=== PATIENT | female | born 1980 | race Caucasian/White ===

== ENCOUNTER 2017-10-03 11:26 | Emergency (ER) | payer BC ==
--- NOTE | 2017-10-03 11:40 | EDM.PDOC ---
ED HPI GENERAL MEDICAL PROBLEM - General Chief Complaint: Abdominal Pain Stated Complaint: abdominal pain Time Seen by Provider: 10/03/17 11:27 Source of Information: Reports: Patient History Limitations: Reports: No Limitations - History of Present Illness INITIAL COMMENTS - FREE TEXT/NARRATIVE: HISTORY AND PHYSICAL: History of present illness: Patient is a 37-year-old female who presents to the emergency room today with complaints of upper abdominal pain 3 days. She states the pain is worse shortly after eating and is associated with some nausea. States she does feel slightly feverish/chills but does not have a recorded temperature from home. She denies any chest pain, shortness of breath, vomiting, diarrhea/ constipation. She denies any dysuria or chance of . Has no previous GI health history or surgeries. Review of systems: As per history of present illness and below otherwise all systems reviewed and negative. Past medical history: As per history of present illness and as reviewed below otherwise noncontributory. Surgical history: As per history of present illness and as reviewed below otherwise noncontributory. Social history: No reported history of drug or alcohol abuse. Family history: As per history of present illness and as reviewed below otherwise noncontributory. Physical exam: General: Well-developed and well-nourished 37-year-old female. Alert and oriented. Nontoxic appearing and in no acute distress. HEENT: Atraumatic, normocephalic, pupils reactive, negative for conjunctival pallor or scleral icterus, mucous membranes moist, throat clear, neck supple, nontender, trachea midline. Lungs: Clear to auscultation, breath sounds equal bilaterally, chest nontender. Heart: S1S2, regular rate and rhythm Abdomen: Soft, nondistended, mild tenderness to the epigastric area. Negative for masses or hepatosplenomegaly. Negative for costovertebral tenderness. Pelvis: Stable nontender. Genitourinary: Deferred. Rectal: Deferred. Extremities: Atraumatic, negative for cords or calf pain. Neurovascular unremarkable. Neuro: Awake, alert, oriented. Cranial nerves II through XII unremarkable. Cerebellum unremarkable. Motor and sensory unremarkable throughout. Exam nonfocal. At this time the patient declines anything for pain. Will perform labs and a gallbladder ultrasound. Gallbladder and common bile duct normal. However a positive sonographic Castro` s sign was noted. Suggesting a HIDA scan. I did share this information with the patient. Lab work is within normal limits except she does have a urinary tract infection which I will treat with Macrobid. Prescription for Zofran and tramadol for her epigastric pain. Encouraged her to follow up with the general surgeon. She voices understanding and is agreeable to plan of care. Diagnostics: CBC, CMP, amylase, lipase, UA, urine , limited abdominal ultrasound, monospot, [employer]: GI cocktail Impression: UTI Epigastric pain Plan: 1. Please take the antibiotic for UTI. Zofran has been prescribed for nausea. Tramadol for pain management. You may use Tylenol and/or Ibuprofen for pain. 2. The U/S did not show any gallstones or gallbladder wall thickening, but due to the + Castro's sign - recommended follow up with general surgeon for possible HIDA scan. A referral has been made for you. 3. [place] diet. Increase your oral fluids. Protonix or Omeprozole (any over the counter PPI) once daily until follow up with general surgery. 4. Return to the ED as needed and as discussed. Definitive disposition and diagnosis as appropriate pending reevaluation and review of above. Duration: Day(s): Location: Reports: Neck, Abdomen upper abdomen Pain Score (Numeric/FACES): 4 - Related Data Allergies Allergy/AdvReac Type Severity Reaction Status Date / Time No Known Allergies Allergy Verified 10/03/17 11:35 Home Meds: Home Meds Drospir/Eth Estra/Levomefol Ca [Beyaz 28] 1 tab PO DAILY 11/13/14 [History] Social & Family History - Tobacco Use Smoking Status *Q: Never Smoker - Alcohol Use Days Per Week of Alcohol Use: 0 - Recreational Drug Use Recreational Drug Use: No ED ROS GENERAL - Review of Systems Review Of Systems: ROS reveals no pertinent complaints other than HPI. ED EXAM, GI/ABD - Physical Exam Exam: See Below (See dictation) Course - Vital Signs Last Recorded V/S: Last Vital Signs Temp 97.6 F 10/03/17 11:32 Pulse 68 10/03/17 13:21 Resp 18 10/03/17 13:21 BP 113/63 10/03/17 13:21 Pulse Ox 98 10/03/17 13:21 - Orders/Labs/Meds Orders: Active Orders 24 hr Category Date Time Status Abdomen Ltd [US] Stat Exams 10/03/17 11:36 Taken CULTURE URINE [RM] Stat Lab 10/03/17 11:50 Received Labs: Laboratory Tests 10/03/17 10/03/17 10/03/17 Range/Units 10:50 10:50 11:55 WBC 8.31 (4.0-11.0) K/uL RBC 4.57 (4.30-5.90) M/uL Hgb 14.1 (12.0-16.0) g/dL Hct 40.0 (36.0-46.0) % MCV 87.5 (80.0-98.0) fL MCH 30.9 (27.0-32.0) pg MCHC 35.3 (31.0-37.0) g/dL RDW Std Deviation 39.1 (28.0-62.0) fl RDW Coeff of Oj 12 (11.0-15.0) % Plt Count 183 (150-400) K/uL MPV 9.50 (7.40-12.00) fL Neut % (Auto) 70.3 (48.0-80.0) % Lymph % (Auto) 23.5 (16.0-40.0) % [place] % (Auto) 5.4 (0.0-15.0) % Eos % (Auto) 0.4 (0.0-7.0) % Baso % (Auto) 0.4 (0.0-1.5) % Neut # (Auto) 5.9 H (1.4-5.7) K/uL Lymph # (Auto) 2.0 (0.6-2.4) K/uL [place] # (Auto) 0.5 (0.0-0.8) K/uL Eos # (Auto) 0.0 (0.0-0.7) K/uL Baso # (Auto) 0.0 (0.0-0.1) K/uL Nucleated RBC % 0.0 /100WBC Nucleated RBCs # 0 K/uL Sodium (136-145) mmol/L Potassium (3.5-5.1) mmol/L Chloride (98-107) mmol/L Carbon Dioxide (21.0-32.0) mmol/L BUN (7.0-18.0) mg/dL Creatinine (0.6-1.0) mg/dL Est Cr Clr Drug Dosing mL/min Estimated GFR (MDRD) ml/min Glucose (74-106) mg/dL Calcium (8.5-10.1) mg/dL Total Bilirubin (0.2-1.0) mg/dL AST (15-37) IU/L ALT (14-63) IU/L Alkaline Phosphatase (46-116) U/L Total Protein (6.4-8.2) g/dL Albumin (3.4-5.0) g/dL Globulin (2.0-3.5) g/dL Albumin/Globulin Ratio (1.3-2.8) Amylase (25-115) U/L Lipase (73-393) U/L Urine Color YELLOW Urine Appearance CLEAR Urine pH 5.0 (5.0-8.0) Ur Specific [place] <= 1.005 (1.001-1.035) Urine Protein NEGATIVE (NEGATIVE) mg/dL Urine Glucose (UA) NEGATIVE (NEGATIVE) mg/dL Urine Ketones NEGATIVE (NEGATIVE) mg/dL Urine Occult Blood LARGE H (NEGATIVE) Urine Nitrite NEGATIVE (NEGATIVE) Urine Bilirubin NEGATIVE (NEGATIVE) Urine Urobilinogen 0.2 (<2.0) EU/dL Ur Leukocyte Esterase NEGATIVE (NEGATIVE) Urine RBC 0-3 (0-2/HPF) Urine WBC 2-5 (0-5/HPF) Ur Epithelial Cells MODERATE (NONE-FEW) Urine Bacteria FEW (NEGATIVE) Urine HCG, Qual NEGATIVE (NEGATIVE) H. pylori IgG Antibody (NEG) Monoscreen (NEG) 10/03/17 10/03/17 10/03/17 Range/Units 11:55 11:55 11:55 WBC (4.0-11.0) K/uL RBC (4.30-5.90) M/uL Hgb (12.0-16.0) g/dL Hct (36.0-46.0) % MCV (80.0-98.0) fL MCH (27.0-32.0) pg MCHC (31.0-37.0) g/dL RDW Std Deviation (28.0-62.0) fl RDW Coeff of Oj (11.0-15.0) % Plt Count (150-400) K/uL MPV (7.40-12.00) fL Neut % (Auto) (48.0-80.0) % Lymph % (Auto) (16.0-40.0) % [place] % (Auto) (0.0-15.0) % Eos % (Auto) (0.0-7.0) % Baso % (Auto) (0.0-1.5) % Neut # (Auto) (1.4-5.7) K/uL Lymph # (Auto) (0.6-2.4) K/uL [place] # (Auto) (0.0-0.8) K/uL Eos # (Auto) (0.0-0.7) K/uL Baso # (Auto) (0.0-0.1) K/uL Nucleated RBC % /100WBC Nucleated RBCs # K/uL Sodium 137 (136-145) mmol/L Potassium 4.0 (3.5-5.1) mmol/L Chloride 103 (98-107) mmol/L Carbon Dioxide 26.1 (21.0-32.0) mmol/L BUN 9 (7.0-18.0) mg/dL Creatinine 1.0 (0.6-1.0) mg/dL Est Cr Clr Drug Dosing 73.51 mL/min Estimated GFR (MDRD) > 60.0 ml/min Glucose 100 (74-106) mg/dL Calcium 9.0 (8.5-10.1) mg/dL Total Bilirubin 0.4 (0.2-1.0) mg/dL AST 21 (15-37) IU/L ALT 21 (14-63) IU/L Alkaline Phosphatase 53 (46-116) U/L Total Protein 7.0 (6.4-8.2) g/dL Albumin 3.4 (3.4-5.0) g/dL Globulin 3.6 H (2.0-3.5) g/dL Albumin/Globulin Ratio 0.9 L (1.3-2.8) Amylase 54 (25-115) U/L Lipase 113 (73-393) U/L Urine Color Urine Appearance Urine pH (5.0-8.0) Ur Specific [place] (1.001-1.035) Urine Protein (NEGATIVE) mg/dL Urine Glucose (UA) (NEGATIVE) mg/dL Urine Ketones (NEGATIVE) mg/dL Urine Occult Blood (NEGATIVE) Urine Nitrite (NEGATIVE) Urine Bilirubin (NEGATIVE) Urine Urobilinogen (<2.0) EU/dL Ur Leukocyte Esterase (NEGATIVE) Urine RBC (0-2/HPF) Urine WBC (0-5/HPF) Ur Epithelial Cells (NONE-FEW) Urine Bacteria (NEGATIVE) Urine HCG, Qual (NEGATIVE) H. pylori IgG Antibody NEGATIVE (NEG) Monoscreen NEGATIVE (NEG) Meds: Medications Discontinued Medications Generic Name Dose Route Start Last Admin Trade Name Freq PRN Reason Stop Dose Admin Al Hydroxide/Mg Hydroxide 15 0 ml 10/03/17 12:26 10/03/17 12:38 ml/ Metoclopramide HCl 5 mg/ PO 10/03/17 12:27 25 each Lidocaine HCl 5 ml ONETIME ONE Administration Departure - Departure Time of Disposition: 13:29 Disposition: Home, Self-Care 01 Clinical Impression: Epigastric abdominal pain UTI (urinary tract infection) Qualifiers: Urinary tract infection type: acute cystitis Hematuria presence: with hematuria Qualified Code(s): N30.01 - Acute cystitis with hematuria - Discharge Information Instructions: Urinary Tract Infection, Adult, Abdominal Pain, Adult, Easy-to- Read Referrals: PCP,None [Primary Care Provider] - Forms: ED Department Discharge Additional Instructions: The following information is given to patients seen in the emergency department who are being discharged to home. This information is to outline your options for follow-up care. We provide all patients seen in our emergency department with a follow-up referral. The need for follow-up, as well as the timing and circumstances, are variable depending upon the specifics of your emergency department visit. If you don't have a primary care physician on staff, we will provide you with a referral. We always advise you to contact your personal physician following an emergency department visit to inform them of the circumstance of the visit and for follow-up with them and/or the need for any referrals to a consulting specialist. The emergency department will also refer you to a specialist when appropriate. This referral assures that you have the opportunity for follow-up care with a specialist. All of these measure are taken in an effort to provide you with optimal care, which includes your follow-up. Under all circumstances we always encourage you to contact your private physician who remains a resource for coordinating your care. When calling for follow-up care, please make the office aware that this follow-up is from your recent emergency room visit. If for any reason you are refused follow-up, please contact the [facility] Emergency Department at and asked to speak to the emergency department charge nurse. [facility] Specialty Care - General Surgery Professional Building [address] [place] [address], [address] [place] [address] 1. Please take the antibiotic for UTI. Zofran has been prescribed for nausea. Tramadol for pain management. You may use Tylenol and/or Ibuprofen for pain. 2. The U/S did not show any gallstones or gallbladder wall thickening, but due to the + Castro's sign - recommended follow up with general surgeon for possible HIDA scan. A referral has been made for you. 3. [place] diet. Increase your oral fluids. Protonix or Omeprozole (any over the counter PPI) once daily until follow up with general surgery. 4. Return to the ED as needed and as discussed. - My Orders Last 24 Hours: My Active Orders 10/03/17 11:36 Abdomen Ltd [US] Stat 10/03/17 11:50 CULTURE URINE [RM] Stat - Assessment/Plan Last 24 Hours: My Active Orders 10/03/17 11:36 Abdomen Ltd [US] Stat 10/03/17 11:50 CULTURE URINE [RM] Stat
[2017-10-03] MEDS ORDERED: Alum Hydrox/Mag Hydrox/Simeth 15 ML, Metoclopramide 5 MG, Lidocaine 2% 5 ML PO ONE ×3 (12:26)
[2017-10-03 12:39] LABS: CHLORIDE,CL 103 mmol/L (98-107); SODIUM,NA 137 mmol/L (136-145)
[2017-10-03 13:22] VITALS: BP 113/63
--- NOTE | 2017-10-05 15:33 | US ---
EXAM DATE: 10/03/17 PATIENT'S AGE: 37 Patient: SHANNA DAWN Facility: [place], [place] Site . Site : 1980 Study: US Abdomen [id number]/03/2017 12:24:52 PM Ordering Physician: Doctor Chun Final Report: INDICATION: Upper abdominal pain. Pain is increased after eating. TECHNIQUE: Abdominal limited ultrasound. FINDINGS: Pancreas where seen is normal. Right kidney measures 10.5 cm is negative for hydronephrosis. Liver is negative for mass or bile duct dilatation. Gallbladder wall normal. No gallstones. No pericholecystic fluid. Registered Dental Hygienist reported a positive sonographic Castro`s sign. Given this finding, acalculous cholecystitis cannot be excluded and if desired could be further evaluated for with a HIDA scan. Clinical and laboratory correlation recommended. Liver negative for mass or bile duct dilatation. Proximal remainder negative. IMPRESSION: Gallbladder and common bile duct normal. However a positive sonographic Castro` s sign was noted which makes exclusion of acalculous cholecystitis not possible. See above discussion and recommendations. No other abnormalities. Dictated by Eliel Alston MD @ Oct 03 2017 12:44PM (Electronic Signature) Report Signed by Proxy. KAL
== END 2017-10-03 13:38 | disposition home or self-care (01) ==
LOC: MW.ED 11:26
DX: N30.01 Acute cystitis with hematuria (principal); R10.13 Epigastric pain; Z79.899 Other long term (current) drug therapy
CPT/HCPCS: 36415; 76705; 80053; 81001; 81025; 82150; 83690; 85025; 86308; 86677; 87086; 99284; A9270; 99283

== ENCOUNTER 2017-10-22 06:32 | Day surgery (SDC) | payer BC ==
[~2017-10-22 06:32] MED LIST: Lactated Ringers 1,000 ML IV SCH; cefOXitin 1 GM in Premix Bag 1 BAG IV ONE
[2017-10-22] MEDS ORDERED: Scopolamine 1.5 MG Transdermal Patch TRDERM PRN (07:17)
--- NOTE | 2017-10-22 07:22 | PCM.PREANE ---
Preanesthetic Assessment - Anesthesia/Transfusion/Family Hx Anesthesia History: Prior Anesthesia Without Reaction Family History of Anesthesia Reaction: No Transfusion History: No Prior Transfusion(s) - Review of Systems General: No Symptoms Pulmonary: No Symptoms Cardiovascular: No Symptoms Gastrointestinal: Abdominal Pain Neurological: No Symptoms Other: Reports: None - Physical Assessment O2 Sat by Pulse Oximetry: 98 Respiratory Rate: 16 Vital Signs: Last Vital Signs Temp 36.2 C 10/22/17 07:04 Pulse 69 10/22/17 07:04 Resp 16 10/22/17 07:04 BP 103/70 10/22/17 07:04 Pulse Ox 98 10/22/17 07:04 Height: 1.68 m Weight: 63.503 kg ASA Class: 2 Mental Status: Alert & Oriented x3 Airway Class: Mallampati = 1 Dentition: Reports: Normal Dentition, Implants (left lower (back)) Thyro-Mental Finger Breadths: 3 Mouth Opening Finger Breadths: 3 ROM/Head Extension: Full Lungs: Clear to Auscultation, Normal Respiratory Effort Cardiovascular: Regular Rate, Regular Rhythm - Lab Values: Laboratory Last Values Urine HCG, Qual NEGATIVE (NEGATIVE) 10/22/17 06:53 - Allergies Allergies/Adverse Reactions: Allergies Allergy/AdvReac Type Severity Reaction Status Date / Time No Known Allergies Allergy Verified 10/19/17 11:53 - Blood Blood Available: No - Anesthesia Plan Pre-Op Medication Ordered: None - Acknowledgements Anesthesia Type Planned: General Anesthesia Pt an Appropriate Candidate for the Planned Anesthesia: Yes Alternatives and Risks of Anesthesia Discussed w Pt/Guardian: Yes Pt/Guardian Understands and Agrees with Anesthesia Plan: Yes PreAnesthesia Questionnaire Gastrointestinal History: Reports: GERD DIRECTOR OF OPERATIONS SUPPORT History: Reports: Endometriosis, Musculoskeletal History: Reports: Fracture Other Musculoskeletal History: hx of fx left wrist - Infectious Disease History Infectious Disease History: Reports: Chicken Pox - Past Surgical History Head Surgeries/Procedures: Reports: None HEENT Surgical History: Reports: Oral Surgery Other HEENT Surgeries/Procedures: has one left lower dental implant GI Surgical History: Reports: Appendectomy Female Surgical History: Reports: Section (x2), Other (See Below) Other Female Surgeries/Procedures: laparoscopy for Endometriosis - SUBSTANCE USE Smoking Status *Q: Never Smoker Second Hand Smoke Exposure: No Days Per Week of Alcohol Use: 0 Recreational Drug Use History: No - HOME MEDS Home Medications: Home Meds Drospir/Eth Estra/Levomefol Ca [Beyaz 28] 1 tab PO DAILY 11/13/14 [History] Omeprazole [priLOSEC OTC] 20 mg PO DAILY 10/19/17 [History] - CURRENT (IN HOUSE) MEDS Current Meds: Current Medications Lactated Ringer's (Ringers, Lactated) 1,000 mls @ 125 mls/hr IV ASDIRECTED [facility] Last Admin: 10/22/17 07:06 Dose: 125 mls/hr Scopolamine (Transderm-Scop) 1.5 mg TRDERM Q72H PRN PRN Reason: Nausea Discontinued Medications Cefoxitin Sodium 1 gm/ Premix 50 mls @ 100 mls/hr IV ONETIME ONE Stop: 10/22/17 06:29
[2017-10-22] MEDS ORDERED: fentaNYL 100 MCG/2 ML SDV ONE (07:25)
[2017-10-22] MEDS ORDERED: Lidocaine 2% 5 ML SDV ONE (07:25)
[2017-10-22] MEDS ORDERED: Propofol 200 MG/20 ML SDV ONE (07:25)
[2017-10-22] MEDS ORDERED: Midazolam 1 MG/ML 2 ML SDV ONE (07:26)
[2017-10-22] MEDS ORDERED: Bupivacaine 0.5% 10 ML SDV ONE (07:27)
[2017-10-22] MEDS ORDERED: ceFAZolin 1 GM Vial ONE (07:27)
[2017-10-22] MEDS ORDERED: fentaNYL 100 MCG/2 ML SDV IVPUSH PRN (08:20)
[2017-10-22] MEDS ORDERED: Acetaminophen/HYDROcodone 325-5 MG Tab PO PRN (09:04)
[2017-10-22] MEDS ORDERED: Morphine 10 MG/ML Syringe IVPUSH PRN (09:04)
--- NOTE | 2017-10-22 09:06 | PCM.OPNOTE ---
- General Post-Op/Procedure Note Date of Surgery/Procedure: 10/22/17 Operative Procedure(s): Laparoscopic cholecystectomy Pre Op Diagnosis: Chronic right upper quadrant pain. Abnormal hepatobiliary scan. Post-Op Diagnosis: Same Anesthesia Technique: General ET Tube (ASA II) Primary Surgeon: Pasha Gasca Protective Services Officer: Pepe Mcrae Fluid Replacement, Intraop: 1,200 EBL in mLs: 10 Condition: Good Free Text/Narrative:: Dictation [id number] CPT CODE [id number]
[2017-10-22] MEDS ORDERED: Lactated Ringers 1,000 ML IV SCH (09:15)
[2017-10-22] MEDS ORDERED: Promethazine 25 MG/ML SDV IM ONE (09:53)
--- NOTE | 2017-10-22 12:06 | OR ---
SURGEON: Pasha Gasca M.D. DATE OF PROCEDURE: 10/22/2017 OPERATION PERFORMED: Laparoscopic cholecystectomy. NETWORK DIRECTOR: Upper And Bottom Lacer Hand: Dr. Mcrae, PGY-2. ANESTHESIA: General endotracheal. ASA CLASSIFICATION: II. PREOPERATIVE DIAGNOSIS: Chronic right upper quadrant pain with abnormal hepatobiliary scan. POSTOPERATIVE DIAGNOSIS: Chronic cholecystitis. INTRAOPERATIVE FLUID REPLACEMENT: 1200 mL of crystalloid. ESTIMATED BLOOD LOSS: 10 mL. DESCRIPTION OF PROCEDURE: The patient was taken to the operating room, placed on the operating table in the supine position. Time-out was called for appropriate identification of the patient and procedure. Thigh-high TEDs and sequential compression boots were placed. Following satisfactory attainment of general endotracheal anesthesia, a Lezama catheter was placed in the patient's urinary bladder. The abdomen was prepped with DuraPrep solution. Sterile drapes were applied. The skin just below the umbilicus was infiltrated with 0.5% Marcaine solution. The skin incision was made. Hemostasis was obtained with the use of electrocautery. The Veress needle was introduced into the peritoneal cavity. The saline drop test was positive. Carbon dioxide pneumoperitoneum was established with the relief set at 13 cm of water. Once we had a satisfactory pneumoperitoneum, 5 mm camera and port were placed through the infraumbilical incision. The patient was now positioned with the feet down and rolled to the left. Under camera vision, 12 mm subxiphoid, 5 mm midclavicular, and 5 mm anterior axillary ports were placed. Each incision had preemptively been infiltrated with 0.5% Marcaine solution. The gallbladder was grasped and dissection was carried out in the cholecystohepatic triangle identifying the cystic duct 1st. Good critical view was obtained in the junction of the cystic duct, and common bile duct was easily seen. The cystic duct was triply hemoclipped and then divided with a laparoscopic Metzenbaum scissor. Cystic artery was then dissected out and again after obtaining a critical view, was triply hemoclipped before division with the laparoscopic Metzenbaum scissor. The gallbladder was dissected away from its bed using electrocautery. No bile was spilled. The gallbladder once amputated was placed in an Endopouch. The bed of the gallbladder was then inspected for hemostasis and small bleeding sites were electrocoagulated. No bile leak was noted. The right upper quadrant was then irrigated with 1% Ancef solution and all fluid was aspirated. Surgicel was placed into the bed of the gallbladder. The right hemidiaphragm was then irrigated with 250 mL of saline containing 20 mL of 0.5% Marcaine solution. That fluid was left in place. Under camera vision, the Endopouch containing gallbladder was removed through the 12 mm port removing the port at the same time. Again under camera vision, 5 mm anterior axillary and midclavicular ports were removed and finally the infraumbilical camera port were removed. Incisions were inspected for hemostasis and bleeding sites were electrocoagulated. The subxiphoid and infraumbilical incisions were closed in 2 layers approximating the subcutaneous tissue with 3-0 Vicryl and the skin with subcuticular 4-0 Monocryl. The anterior axillary and midclavicular incisions were closed with subcuticular 4-0 Monocryl. All incisions were Steri- Stripped and dressed with sterile Tegaderm pads. Sponge, needle, and instrument counts were all correct. Lezama catheter was removed prior to emergence from anesthesia. Following emergence from anesthesia and extubation, the patient was taken to recovery room in stable condition. KIM / LEILA /[id number]
--- NOTE | 2017-10-22 12:19 | PCM48HPAN ---
Post Anesthesia Note - EVALUATION WITHIN 48HRS OF ANESTHETIC Vital Signs in Normal Range: Yes Patient Participated in Evaluation: Yes Respiratory Function Stable: Yes Airway Patent: Yes Cardiovascular Function Stable: Yes Hydration Status Stable: Yes Pain Control Satisfactory: Yes Nausea and Vomiting Control Satisfactory: Yes Mental Status Recovered: Yes Resp Rate: 11 - COMMENTS/OBSERVATIONS Free Text/Narrative:: no anesthesia problems
[2017-10-22 12:38] VITALS: BP 118/76
== END 2017-10-22 12:20 | disposition home or self-care (01) ==
LOC: MW.SDS 06:32
PROVIDERS: ATTEND Surgery
DX: K81.1 Chronic cholecystitis (principal); Z79.899 Other long term (current) drug therapy
CPT/HCPCS: 47562; 81025; A9270; J0694; J2250; J2270; J2550; J3010; J7120; 00790; 88304; J0690; J2704